=== PATIENT | female | born 1995 | race African-American/Black ===

== ENCOUNTER 2016-09-17 19:12 | Emergency (ER) | payer OTHER, MEDICAID ==
--- NOTE | 2016-09-17 19:37 | ER Document Report ---
ED Medical Screen (RME) - General Chief Complaint: Psych Problem Stated Complaint: PSYCH EVAL AND POSSIBLE STD Time Seen by Provider: 09/17/16 19:33 Mode of Arrival: Ambulatory Information source: Patient TRAVEL OUTSIDE OF THE [place] IN LAST 30 DAYS: No - HPI Patient complains to provider of: possible std exposure Onset: This afternoon - pt. states her girlfriend told her she "got something" implying an STD -- pt. wants to be checked and thinks she "doesn't want to live anymore if she got something - Related Data Allergies/Adverse Reactions: No Known Allergies Allergy (Verified 09/17/16 19:15) Past Medical History Pulmonary Medical History: Reports: Hx Asthma - has not had any wheezing, uses albuterol inhaler as needed Endocrine Medical History: Denies: Hx Diabetes Mellitus Type 1, Hx Diabetes Mellitus Type 2 Renal/ Medical History: Denies: Hx Peritoneal Dialysis Psychiatric Medical History: Reports: Hx Bipolar Disorder, Hx Depression, Hx Personality Disorder Past Surgical History: Reports: Hx Oral Surgery - Immunizations Immunizations up to date: Yes Hx Diphtheria, Pertussis, Tetanus Vaccination: Yes - <5years Physical Exam - Vital signs Vitals: Temp Pulse BP Pulse Ox 99.5 F 129 H 132/103 H 96 09/17/16 19:18 09/17/16 19:18 09/17/16 19:18 09/17/16 19:18 Course - Vital Signs Vital signs: Temp Pulse Resp BP Pulse Ox 99.5 F 129 H 132/103 H 96 09/17/16 19:18 09/17/16 19:18 09/17/16 19:18 09/17/16 19:18
--- NOTE | 2016-09-17 20:43 | ER Document Report ---
ED General - General Chief Complaint: Psych Problem Stated Complaint: PSYCH EVAL AND POSSIBLE STD Time Seen by Provider: 09/17/16 19:33 Mode of Arrival: Ambulatory Notes: 21-year-old female presents with suicidal ideation "I just want to " in the setting of being told that her girlfriend is suffering from a sexually transmitted disease. She has a history of bipolar and cutting and has been hospitalized in the past. She is not very forthcoming with her story but this was gleaned from both her triage sheet and the nurse. She has no symptoms of sexually transmitted disease and only has sex with females. TRAVEL OUTSIDE OF THE [place] IN LAST 30 DAYS: No - Related Data Allergies/Adverse Reactions: No Known Allergies Allergy (Verified 09/17/16 19:15) Past Medical History - General Information source: Patient - Social History Smoking Status: Never Smoker Chew tobacco use (# tins/day): No Frequency of alcohol use: None Drug Abuse: Marijuana Family History: Reviewed & Not Pertinent Pulmonary Medical History: Reports: Hx Asthma - has not had any wheezing, uses albuterol inhaler as needed Endocrine Medical History: Denies: Hx Diabetes Mellitus Type 1, Hx Diabetes Mellitus Type 2 Renal/ Medical History: Denies: Hx Peritoneal Dialysis Psychiatric Medical History: Reports: Hx Bipolar Disorder, Hx Depression, Hx Personality Disorder Past Surgical History: Reports: Hx Oral Surgery - Immunizations Immunizations up to date: Yes Hx Diphtheria, Pertussis, Tetanus Vaccination: Yes - <5years Review of Systems - Review of Systems Notes: REVIEW OF SYSTEMS GEN: Denies fever, chills, weight loss ENT: Denies sore throat, nasal discharge, ear pain EYES: Denies blurry vision, eye pain, discharge CV: Denies chest pain, palpitations, edema RESP: Denies cough, shortness of breath, wheezing GI: Denies abdominal pain, nausea, vomiting, diarrhea MSK: Denies joint pain/swelling, edema, SKIN: Denies rash, skin lesions LYMPH: Denies swollen glands/lymph nodes NEURO: Denies headache, focal weakness or numbness, dizziness PSYCH: Depression suicidal ideation PHYSICAL EXAMINATION General: No acute distress, well-nourished Head: Atraumatic, normocephalic ENT: Mouth normal, oropharynx moist, no exudates or tonsillar enlargement Eyes: Conjunctiva normal, pupils equal, lids normal Neck: No JVD, supple, no guarding CVS: Normal rate, regular rhythm, no murmurs Resp: No resp distress, equal and normal breath sounds bilaterally GI: Nondistended, soft, no tenderness to palpation, no rebound or guarding Ext: No deformities, no edema, normal range of motion in upper and lower ext Back: No CVA or midline TTP Skin: No rash, warm Lymphatic: No lymphadeopathy noted Neuro: Awake, alert. Face symmetric. GCS 15. Physical Exam - Vital signs Vitals: Temp Pulse BP Pulse Ox 99.5 F 129 H 132/103 H 96 09/17/16 19:18 09/17/16 19:18 09/17/16 19:18 09/17/16 19:18 Course - Re-evaluation Re-evalutation: 09/17/16 20:42 21-year-old female who is at least moderate to possibly high risk for suicide completion presents with suicidal ideation in the setting of being told that her partner has essentially transmitted infection. She has no symptoms. Will place her on involuntary commitment papers order a protocol of orders. I do not believe she requires treatment for sexual transmitted disease because she is asymptomatic. I will test her as appropriate. - Vital Signs Vital signs: Temp Pulse Resp BP Pulse Ox 99.5 F 129 H 132/103 H 96 09/17/16 19:18 09/17/16 19:18 09/17/16 19:18 09/17/16 19:18 Discharge - Discharge Clinical Impression: Suicidal ideation Condition: Fair Disposition: PSYCH HOSP/UNIT
[2016-09-17 20:49] LABS: ABSOLUTE LYMPHOCYTES (AUTO) 1.6 10^3/uL (0.5-4.7); ABSOLUTE MONOCYTES (AUTO) 0.3 10^3/uL (0.1-1.4); BASOPHILS % (AUTO) 0.7 % (0-2); EOSINOPHILS % (AUTO) 0.8 % (0-6); HEMATOCRIT 41.3 % (36.0-47.0); HEMOGLOBIN 14.2 g/dL (12.0-15.5); HGB HCT DIFFERENCE 1.3; LYMPHOCYTES % (AUTO) 26.7 % (13-45); MEAN CORPUSCULAR HEMOGLOBIN 32.4 pg (27.0-33.4); MEAN CORPUSCULAR HGB CONC 34.4 g/dL (32.0-36.0); MEAN CORPUSCULAR VOLUME 94 fl (80-97); MONOCYTES % (AUTO) 5.4 % (3-13); RED BLOOD COUNT 4.39 10^6/uL (3.72-5.28); RED CELL DISTRIBUTION WIDTH 12.6 % (11.5-14.0); SEGMENTED NEUTROPHILS % (AUTO) 66.4 % (42-78)
[2016-09-17 21:03] LABS: ALANINE AMINOTRANSFERASE 20 U/L (9-52); ALBUMIN 4.4 g/dL (3.5-5.0); ALKALINE PHOSPHATASE 113 U/L (38-126); ANION GAP 12 (5-19); ASPARTATE AMINO TRANSFERASE 16 U/L (14-36); BILIRUBIN,DIRECT 0.2 mg/dL (0.0-0.4); BILIRUBIN,TOTAL 0.4 mg/dL (0.2-1.3); BLOOD UREA NITROGEN 9 mg/dL (7-20); CALCIUM 9.5 mg/dL (8.4-10.2); CARBON DIOXIDE 22 mmol/L (22-30); CHLORIDE 107 mmol/L (98-107); CREATININE RESULT 0.89 mg/dL (0.52-1.25); GLUCOSE 91 mg/dL (75-110); POTASSIUM 4.2 mmol/L (3.6-5.0); SODIUM 140.5 mmol/L (137-145); TOTAL PROTEIN 7.3 g/dL (6.3-8.2)
[2016-09-17 21:09] LABS: ALCOHOL < 10 mg/dL (NONE DETECTED)
[2016-09-17] MEDS ORDERED: QUETIAPINE FUMARATE 100 MG TABLET PO ONE ×2 (21:12→22:07)
[2016-09-17 22:25] LABS: APPEARANCE,URINE SLIGHTLY-CLOUDY; BILIRUBIN,URINE NEGATIVE (NEGATIVE); GLUCOSE, URINE NEGATIVE (NEGATIVE); KETONES,URINE NEGATIVE (NEGATIVE); LEUKOCYTE ESTERASE,URINE NEGATIVE (NEGATIVE); NITRITE,URINE NEGATIVE (NEGATIVE); PROTEIN,URINE NEGATIVE (NEGATIVE); URINE SPECIFIC GRAVITY 1.023; UROBILINOGEN,URINE NEGATIVE mg/dL (<2.0)
[2016-09-17 22:43] LABS: URINE BARBITURATES SCREEN NEGATIVE; URINE METHADONE SCREEN NEGATIVE; URINE OPIATES LOW NEGATIVE; URINE PHENCYCLIDINE SCREEN NEGATIVE
[2016-09-17] MEDS ORDERED: LORAZEPAM 1 MG TABLET PO ONE (23:12)
[2016-09-18 00:42] LABS: CHLAM PCR NOT DETECTED (NOT DETECT)
--- NOTE | 2016-09-18 09:44 | ER Document Report ---
ED Psych Disorder / Suicide - General Mode of Arrival: Ambulatory Information source: Patient, Friend - significant other, [facility] Records TRAVEL OUTSIDE OF THE [place] IN LAST 30 DAYS: No - HPI Patient complains to provider of: Suicidal ideation, Other - pt also requested an std check Onset: Just prior to arrival Onset was: Sudden Suicide Risk Factors: Substance abuse - marijuana Normal mood: Yes Associated symptoms: Normal affect, Normal mood Similar symptoms previously: Yes Recently seen / treated by doctor: Yes <MAMIE CLAUDIO - Last Filed: 09/18/16 09:13> <DESTINI JIMENEZ - Last Filed: 09/18/16 10:07> - General Chief Complaint: Psych Problem Stated Complaint: PSYCH EVAL AND POSSIBLE STD Time Seen by Provider: 09/17/16 19:33 - HPI Notes: Patient is a 21 year old female who presented last night with requests for STD check and stating she was suicidal. Patient this morning states she is fine, and not experiencing any SI. Patient states she was just upset because she thought she had an STD. Patient acknowledges that she has attempted suicide in the past, with last episode 2 years prir. Patient states she is her own guardian and resides in therapeutic foster care. Patient provides verbal consent to speak with her therapeutic diaphragm builder (TFP). TFP states she has had the patient 3 months in placement and everything in the home is secured (medications, cleaning supplies, etc). She states she also had her in placement 2 years ago, but the patient went to [facility] for residential care. TFP reports no concerns and states the patient is fine. Note, both TFP and patient are smiling and laughing. TFP states she just had an episode, and did not know how to handle the situation. Patient is A&O. Mood is happy with smiling affect. Patient denies SI/HI. Patient denies A/V H; delusions not noted. Thought processes were organized, but guarded. Conversational speech was WNL for prosody. Intellectual abilities were estimated within average range. Attention and focus were fair. Insight, judgment, and impulse control were poor. Unspecified Bipolar Disorder, per history Unspecified Cannabis Use Disorder, per history Patient is psychiatrically cleared for discharge. Patient denies SI and no longer meets criteria for IVC. Patient and her TFP are observed laughing, smiling, etc and deny any concerns. Discussed with [facility], [facility], that this episode presents as an innapropriate use of the Emergency Medicine System, as well as the Mental Health System. Patient has an 24 hour on-call clinician through her numerous services who was not contacted prior to presenting to the ER. Patient is recommended to follow up with her clinical team to review coping skills and process her breakup. I consulted with Dr. Broussard in regards to the care and management of this patient. (MAMIE CLAUDIO) - Related Data Allergies/Adverse Reactions: No Known Allergies Allergy (Verified 09/17/16 19:15) Past Medical History - General Information source: Patient, Office - [facility], [facility] Records - Social History Smoking Status: Never Smoker Chew tobacco use (# tins/day): No Frequency of alcohol use: None Drug Abuse: Marijuana Family History: Reviewed & Not Pertinent Patient has suicidal ideation: No Patient has homicidal ideation: No Pulmonary Medical History: Reports: Hx Asthma - has not had any wheezing, uses albuterol inhaler as needed Endocrine Medical History: Denies: Hx Diabetes Mellitus Type 1, Hx Diabetes Mellitus Type 2 Renal/ Medical History: Denies: Hx Peritoneal Dialysis Psychiatric Medical History: Reports: Hx Bipolar Disorder, Hx Depression, Hx Personality Disorder Past Surgical History: Reports: Hx Oral Surgery - Immunizations Immunizations up to date: Yes Hx Diphtheria, Pertussis, Tetanus Vaccination: Yes - <5years <MAMIE CLAUDIO - Last Filed: 09/18/16 09:13> Course - Laboratory Result Diagrams: 09/17/16 20:30 09/17/16 20:30 <MAMIE CLAUDIO - Last Filed: 09/18/16 09:13> - Laboratory Result Diagrams: 09/17/16 20:30 09/17/16 20:30 <DESTINI JIMENEZ - Last Filed: 09/18/16 10:07> - Re-evaluation Re-evalutation: 09/18/16 10:06 I reevaluated patient this morning at approximately 10 AM. Patient has no complaints. She did ask if her results showed any evidence of sexually transmitted disease. I did inform her that there is no evidence at this time of any sexually transmitted diseases. Patient denied any other complaints to me. She did state that she was no longer suicidal. She did state that she had a ride home in a safe place to go and felt comfortable with discharge. (DESTINI JIMENEZ) - Vital Signs Vital signs: Temp Pulse Resp BP Pulse Ox 98.2 F 69 15 139/75 H 99 09/18/16 06:50 09/18/16 06:50 09/18/16 06:50 09/18/16 06:50 09/18/16 06:50 - Laboratory Laboratory results interpreted by me: 09/17/16 09/17/16 20:30 20:30 Urine Blood SMALL H Salicylates < 1.0 L Acetaminophen < 10 L Discharge <MAMIE CLAUDIO - Last Filed: 09/18/16 09:13> <DESTINI JIMENEZ - Last Filed: 09/18/16 10:07> - Discharge Clinical Impression: Suicidal ideation Condition: Stable Disposition: HOME, SELF-CARE Instructions: Bipolar Disorder ([facility]) Additional Instructions: Suicidal Ideation Suicidal ideation is a common medical term for thoughts about suicide, which may be as detailed as a formulated plan, without the suicidal act itself. Although most people who undergo suicidal ideation do not commit suicide, some go on to make suicide attempts. The range of suicidal ideation varies greatly from fleeting to detailed planning, role playing, and unsuccessful attempts. Bipolar Disorder Bipolar disorder is also called manic-depressive disorder. Depression alternates with brain hyperactivity called giulia. Each phase lasts from several days to a few weeks. We don't know exactly what causes bipolar disorder , but it's treatable. During the "manic phase," you may feel elated and energetic. You may have racing thoughts, rapid speech, increased activity, and grandiose ideas. During this time, you may not realize how poor your judgement is. Inappropriate spending, drug abuse, excessive alcohol use, marriage problems, and irresponsible sexual behavior are common during the manic phase. During the "depressive phase," you might feel depressed, guilty, worthless , fatigued, and unable to concentrate. You might have thoughts of suicide. Good treatments are available for bipolar disorder. [place] is a classic drug for bipolar disorder, and is still often useful. If the manic phase is very mild, an antidepressant alone can be prescribed. If the manic phase is very severe, an antipsychotic medicine (such as Haldol) may be needed. The treatment must be matched to your symptoms, so it's important to work closely with your psychiatric care provider. Contact your physician, the hospital emergency center, crisis line, or your counsellor if you are losing control or having self-destructive thoughts. Please utilize your clinical team for support. Please stop doing drugs. Please follow up at [facility] as instructed.
[2016-09-18 10:14] VITALS: BP 125/74
--- NOTE | 2016-09-18 12:52 | EKG REPORT ---
SEVERITY:- NORMAL ECG - SINUS RHYTHM : Confirmed by: Meliza Huntley MD 18-Sep-2016 12:52:04
== END 2016-09-18 10:14 | disposition home or self-care (01) ==
LOC: ER 19:12
DX: F31.9 Bipolar disorder, unspecified (principal); R45.851 Suicidal ideations; F12.10 Cannabis abuse, uncomplicated; Z91.5 Personal history of self-harm; J45.909 Unspecified asthma, uncomplicated; Z11.3 Encounter for screening for infections with a predominantly sexual mode of transmission
CPT/HCPCS: 93005; 99284; 36415; 80307 ×4; 84703; 85025; 80053; 81001; 87491; 87591; 93010; J3490